=== PATIENT | female | born 1980 | race Caucasian/White ===

== ENCOUNTER 2019-03-15 07:47 | Emergency (ER) | payer OTHER ==
[2019-03-15] MEDS ORDERED: HYDROCODONE/APAP 10/325 TAB ONE (08:05)
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
== END 2019-03-15 09:18 | disposition home or self-care (01) ==
LOC: ER 07:47
DX: S02.2XXA Fracture of nasal bones, initial encounter for closed fracture (principal); W50.0XXA Accidental hit or strike by another person, initial encounter; Y93.89 Activity, other specified; Y92.9 Unspecified place or not applicable; Z88.8 Allergy status to other drugs, medicaments and biological substances
CPT/HCPCS: 70450; 70486; 76377; 99284

== ENCOUNTER 2021-08-24 07:11 | Emergency (ER) | payer OTHER, SELFPAY ==
[2021-08-24 08:15] LABS: Absolute Lymphocytes (CBC) 2.1 K/uL (0.7-4.9); Hematocrit 23.3 % (36.0-45.0); Lymphocytes % 14.5 % (15.3-44.8); MPV 7.7 fL (7.6-11.3); RBC Red Blood Cell Count 3.57 M/uL (3.86-4.86)
[2021-08-24] MEDS ORDERED: MORPHINE 4 MG/ML SYR ONE (08:23)
[2021-08-24] MEDS ORDERED: ONDANSETRON 4 MG/2 ML VIAL ONE (08:23)
[2021-08-24 08:35] LABS: Urine Blood 3+ (Negative); Urine Glucose Negative (Negative); Urine Protein 1+ (Negative); Urine Specific Gravity >=1.030 (1.005-1.030); Urine pH 5.5 (5.0-7.0)
[2021-08-24 08:45] LABS: BUN Blood Urea Nitrogen 9 mg/dL (7-18); Bicarbonate 23 mmol/L (21-32); Glucose Level 127 mg/dL (74-106); Potassium 3.2 mmol/L (3.5-5.1); Sodium Level 138 mmol/L (136-145)
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
[2021-08-24 09:07] LABS: Urine Specific Gravity/Preg >1.030 (1.005-1.030)
[2021-08-24] MEDS ORDERED: PANTOPRAZOLE 40 MG INJ ONE (09:55)
[2021-08-24 10:03] LABS: Anisocytosis 2+; Blood Morphology Comment NOTED (NOT SEEN); Hypochromasia 2+; Platelet Estimate ADEQ; White Blood Cell Scan OK (OK)
[2021-08-24] MEDS ORDERED: NA CHLORIDE 0.9% 500 ML ONE (10:07)
[2021-08-24] MEDS ORDERED: NA CHLORIDE 0.9% 250 ML ONE (10:07)
[2021-08-24] MEDS ORDERED: POTASSIUM CL 20 MEQ in NA CHLORIDE 0.9% 100 ML IV ONE (11:00)
[2021-08-24] MEDS ORDERED: LIDOCAINE VISCOUS 2% SOLN 15 ML UDC ONE (11:28)
[2021-08-24] MEDS ORDERED: MAGNES/ALUMIN/SIMET 30ML UCUP ONE ×2 (11:28→11:33)
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
[2021-08-24 14:24] VITALS: TEMP 98.9
[2021-08-24 14:28] VITALS: BP 124/82; O2SAT 98
== END 2021-08-24 14:02 | disposition home or self-care (01) ==
LOC: ER 07:11
PROC: 30233N1 Transfusion of Nonautologous Red Blood Cells into Peripheral Vein, Percutaneous Approach (ICD-10-PCS; principal; 2021-08-24)
DX: D64.9 Anemia, unspecified (principal); K27.3 Acute peptic ulcer, site unspecified, without hemorrhage or perforation; K29.80 Duodenitis without bleeding; Z88.8 Allergy status to other drugs, medicaments and biological substances
CPT/HCPCS: 36415; 71045; 74177; 80048; 81003; 81025; 85025; 86850; 86900; 86901; 96361; 96365; 96366; 96375; 99284; C9113; J2405; J3480; J7040; J7050; P9016; Q9967